=== PATIENT | female | born 1980 | race Caucasian/White ===

== ENCOUNTER 2021-09-27 14:46 | Emergency (ER) | payer OTHER ==
[~2021-09-27] VITALS: Ht 160 cm; Wt 99.3 kg
[2021-09-27 14:55] VITALS: BP 125/73
--- NOTE | 2021-09-27 15:06 | NUR ---
PT LWBS, NOT RETURNING PER PHONE CALL. JES[facility] MADE AWARE.
== END 2021-09-27 15:06 | disposition left against medical advice (07) ==
LOC: MED 14:46
DX: R79.9 Abnormal finding of blood chemistry, unspecified (principal); Z53.21 Procedure and treatment not carried out due to patient leaving prior to being seen by health care provider